=== PATIENT | male | born 1965 | race Two or more races ===

== ENCOUNTER 2018-11-22 20:11 | Inpatient (IN) | payer OTHER ==
[~2018-11-22] VITALS: Ht 180.3 cm; Wt 89.8 kg
--- NOTE | 2018-11-22 20:57 | NUR ---
BIBPA .C/O "SURGERY L L E X30 DAYS AGO FOR FX. LOOKS LIKE NECTORIC TISSUE " -FEVER. -TACHYCARDIA. VSS. AOX4. NAMIBIAN SPEAKING. PT AAOX3, VSS. RR EVEN & UNLABORED. DENIES CP, SOB, DIZZINESS, N/V @ THIS TIME. PT SEEN & EVAL'D BY SAMY TEE. WILL CONT TO MONITOR. FAMILY MEMBER @ BS ASSISTING W/ TRANSLATION & WILL CONT TO MONITOR.
[2018-11-22 21:00] LABS: BASOPHILS # (AUTO) 0.1 /CMM (0.0-0.2); BASOPHILS % (AUTO) 1.3 % (0.0-2.0); EOSINOPHILS % (AUTO) 3.9 % (0.0-6.0); HEMATOCRIT 36 % (39-51); HEMOGLOBIN 11.7 g/dL (13.5-17.5); LYMPHOCYTES # (AUTO) 1.6 /CMM (0.8-4.8); MEAN CORPUSCULAR HGB CONC 32 g/dl (31.0-36.0); MEAN CORPUSCULAR VOLUME 85 fL (80-96); MONOCYTES # (AUTO) 0.7 /CMM (0.1-1.30); MONOCYTES % (AUTO) 9.1 % (2.0-12.0); NEUTROPHILS # (AUTO) 4.7 /CMM (1.8-8.9); NEUTROPHILS % (AUTO) 63.7 % (43.0-81.0); PLATELET COUNT (AUTO) 426 /CMM (150-450); RED BLOOD CELL COUNT(AUTO) 4.28 MIL/uL (4.5-6.0); WHITE BLOOD COUNT (AUTO) 7.3 K/uL (4.3-11.0)
[2018-11-22 21:31] LABS: ALBUMIN 2.8 g/dL (3.4-5.0); BILIRUBIN,DIRECT 0.1 mg/dL (0.0-0.2); BILIRUBIN,TOTAL 0.2 mg/dL (0.2-1.0); CALCIUM, SERUM 9.1 mg/dL (8.5-10.1); CREATININE 0.7 mg/dL (0.6-1.3); TOTAL PROTEIN, SERUM 7.7 g/dL (6.4-8.2)
[2018-11-22] MEDS ORDERED: CT SWABBABLE VALVE TRANS SET 1 EA INFUS.SET MC ONE (21:32)
[2018-11-22] MEDS ORDERED: IV NS 0.9% 250 ML IV ONE (21:32)
[2018-11-22] MEDS ORDERED: IOHEXOL-300 100 ML VIAL IV ONE (21:32)
[2018-11-22] MEDS ORDERED: VANCOMYCIN 1 GM in IV NS 0.9% 250 ML IV STA (21:55)
[2018-11-22] MEDS ORDERED: MORPHINE SULFATE INJ 2 MG/ML DISP.SYRIN IV ONE (22:00)
[2018-11-22] MEDS ORDERED: IV NS 0.9% 1,000 ML BAG IV ONE (22:00)
[2018-11-22] MEDS ORDERED: ONDANSETRON HCL/PF 4 MG/2 ML VIAL IVP ONE (22:00)
[2018-11-22] MEDS ORDERED: MORPHINE SULFATE INJ 4 MG/ML DISP.SYRIN ONE (22:17)
[2018-11-22] MEDS ORDERED: VANCOMYCIN 1 GM VIAL ONE (22:17)
[2018-11-22] MEDS ORDERED: ONDANSETRON HCL/PF 4 MG/2 ML VIAL ONE (22:17)
--- NOTE | 2018-11-22 22:25 | NUR ---
DR. CHIANG NOTIFIED, NOT MATRIX INSPECTOR. [facility] CALLED, DUSTY WEBB APPLE SORTER PAGED.
--- NOTE | 2018-11-22 22:36 | NUR ---
MEDICATED ORDERED, PT MESFIN WELL. WILL CONT TO MONITOR.
[2018-11-22] MEDS ORDERED: DEXTROSE 50%-WATER 50 ML DISP.SYRIN IV PRN (23:00)
[2018-11-22] MEDS: BLOOD SUGAR DIAGNOSTIC 1 EACH STRIP IN SCH (23:00)
[2018-11-22] MEDS ORDERED: ACETAMINOPHEN 325 MG TABLET PO PRN (23:00)
[2018-11-22] MEDS ORDERED: MAG HYDROX/AL HYDROX/SIMETH 30 ML UDC PO PRN (23:00)
[2018-11-22] MEDS ORDERED: ZOLPIDEM TARTRATE 5 MG TABLET PO PRN (23:00)
[2018-11-22] MEDS ORDERED: Z GUARD REMEDY 2 OZ OINT TP PRN (23:00)
[2018-11-22] MEDS ORDERED: ONDANSETRON HCL/PF 4 MG/2 ML VIAL IVP PRN (23:00)
--- NOTE | 2018-11-22 23:31 | NUR ---
REPORT GIVEN TO CAPRI TINAJERO FOR VIN.
[2018-11-23 00:30] VITALS: BP 154/94
--- NOTE | 2018-11-23 00:30 | NUR ---
RN ADMITTING NOTES RECEIVED PT FROM ER VIA KRISTAL, AWAKE ALERT ORIENTED X4, BREATHING EVEN AND UNLABORED ON ROOM AIR. IV ACCESS ON THE R AC 20G. NO COMPLAINT OF PAIN OR DISCOMFORT AT THIS TIME. L LOWER LEG WOUND, WRAPPED AND KERLIX, DRESSING CHANGED AND WOUND PICTURED. BELONGINGS SIGNED FOR. BED IN LOWEST LOCKED POSITION, CALL LIGHT WITHIN REACH AT ALL TIMES, WILL CONTINUE TO MONITOR FREQUENTLY/
[2018-11-23] MEDS: ENOXAPARIN SODIUM 40 MG/0.4 ML DISP.SYRIN SQ SCH ×2 (00:40→22:09)
--- NOTE | 2018-11-23 00:40 | NUR ---
BG 136- PT REFUSED INSULIN
[2018-11-23] MEDS: IV NS 0.9% 1,000 ML IV PRN ×2 (00:46→16:40)
[2018-11-23] MEDS: HYDROCODONE/APAP 5/325MG 1 EACH TABLET PO PRN ×2 (02:20→18:57)
[2018-11-23] MEDS ORDERED: HYDR-4384 PO (03:00)
[2018-11-23] MEDS ORDERED: INSU100V7 SQ (03:00)
[2018-11-23] MEDS ORDERED: ENOX40DI SQ (03:03)
[2018-11-23] MEDS ORDERED: DOCU-159 PO (03:03)
[2018-11-23] MEDS ORDERED: INSU100V39 SQ (03:03)
[2018-11-23 04:16] VITALS: BP 154/94
[2018-11-23 06:26] LABS: BASOPHILS % (AUTO) 0.7 % (0.0-2.0); EOSINOPHILS % (AUTO) 6.4 % (0.0-6.0); HEMATOCRIT 35 % (39-51); LYMPHOCYTES # (AUTO) 1.3 /CMM (0.8-4.8); LYMPHOCYTES % (AUTO) 23.3 % (20.0-44.0); MEAN CORPUSCULAR HGB CONC 32 g/dl (31.0-36.0); MEAN CORPUSCULAR VOLUME 85 fL (80-96); MONOCYTES # (AUTO) 0.5 /CMM (0.1-1.30); MONOCYTES % (AUTO) 9.5 % (2.0-12.0); NEUTROPHILS # (AUTO) 3.4 /CMM (1.8-8.9); NEUTROPHILS % (AUTO) 60.1 % (43.0-81.0); PLATELET COUNT (AUTO) 358 /CMM (150-450); RED BLOOD CELL COUNT(AUTO) 4.06 MIL/uL (4.5-6.0); WHITE BLOOD COUNT (AUTO) 5.7 K/uL (4.3-11.0)
--- NOTE | 2018-11-23 06:33 | NUR ---
RN MS CLOSING NOTES PT REMAINS IN BED SLEEPING INTERMITTENTLY , BREATHING EVEN AND UNLABORED ON ROOM AIR. IV ACCESS ON THE R AC 20G WITH NS @ 75ML/HR. NO COMPLAINT OF PAIN OR DISCOMFORT AT THIS TIME. L LOWER LEG WOUND, WRAPPED AND KERLIX, DRESSING CLEAN AND INTACT. BED IN LOWEST LOCKED POSITION, CALL LIGHT WITHIN REACH AT ALL TIMES, WILL ENDORSE TO DAY NURSE FOR VIN
[2018-11-23] MEDS: BLOOD SUGAR DIAGNOSTIC 1 EACH STRIP IN SCH ×4 (06:34→22:10)
[2018-11-23 07:00] VITALS: BP 150/90
[2018-11-23 07:01] LABS: CALCIUM, SERUM 8.5 mg/dL (8.5-10.1); CREATININE 0.7 mg/dL (0.6-1.3); MAGNESIUM 1.8 mg/dL (1.8-2.4); PHOSPHORUS 4.1 mg/dL (2.5-4.9); POTASSIUM 4.1 mmol/L (3.5-5.1)
--- NOTE | 2018-11-23 07:39 | NUR ---
MS RN OPENING NOTES RECEIVED PT LAYING IN BED, RESTING COMFORTABLY. PT IS A/O X4, AFEBRILE. RESPIRATIONS ARE EVEN AND UNLABORED, NOT IN ANY ACUTE DISTRESS NOTED. DENIES ANY PAIN AT THIS TIME, NO SOB, N/V. IV SITE TO RAC G20 INTACT, NO INFILTRATION NOTED. DRESSING KEPT CLEAN AND DRY. SAFETY MEASURES ARE IN PLACE. INSTRUCTED PT TO USE CALL LIGHT WHEN ASSISTANCE IS NEEDED, CALL LIGHT IS LEFT WITHIN REACH. WILL MONITOR THROUGHOUT SHIFT FOR CONTINUITY OF CARE.
[2018-11-23 08:00] VITALS: BP 150/90
[2018-11-23] MEDS: LISINOPRIL (10MG) 10 MG TABLET PO SCH (08:14)
[2018-11-23] MEDS: ASPIRIN 81 MG TAB.CHEW PO SCH (08:14)
[2018-11-23] MEDS ORDERED: FEE PK DOSING 1 MIN EA MC ONE (08:15)
--- NOTE | 2018-11-23 09:47 | NUR ---
WOUND CARE CONSULT: PT PRESENTS WITH LEFT LOWER LEG DRESSING WHICH PT REFUSED TO HAVE REMOVED AT THIS TIME. LACHELLE NOTED TO LEFT UPPER LEG, PRESENT ON ADMISSION. DEFER TO MD FOR SURGICAL CONSULT. PT IS CONTINENT AND INDEPENDENT WITH BED MOBILITY. Addendum: 11/23/18 at 0952 by GEOFFREY VITALE WNDNU SPOKE WITH ECOLOGIST TECHNICIAN REGARDING POSSIBLE SURGICAL CONSULT AND DPM CONSULT REQUESTED WELL SURGICAL CONSULT. DR KENNEDY MUHAMMAD NOTIFIED OF SURGICAL CONSULT REQUEST AND DR THORPE NOTIFIED OF DPM CONSULT REQUEST.
[2018-11-23] MEDS: VANCOMYCIN 1.25 GM in IV D5W 250 ML IV SCH ×2 (10:14→20:55)
[2018-11-23] MEDS: INSULIN REGULAR, HUMAN 100 UNIT/ML 3 ML VIAL SQ PRN ×3 (12:00→21:18)
--- NOTE | 2018-11-23 13:40 | NUR ---
MS RN NOTES-- PT ABLE TO MAKE NEEDS KNOWN, NEEDS MET AND ANTICIPATED. PT DOES NOT APPEAR TO BE IN ANY APPARENT DISTRESS. REMINDED PT TO USE CALL LIGHT WHEN ASSISTANCE IS NEEDED, CALL LIGHT IS LEFT WITHIN REACH. WILL CONTINUE TO MONITOR THROUGHOUT SHIFT FOR CONTINUITY OF CARE.
--- NOTE | 2018-11-23 15:06 | NUR ---
MS RN NOTES-- PT WAS SEEN AND EXAMINED BY DR. ALEXANDRE, DRESSING CHANGE DONE.
[2018-11-23 16:00] VITALS: BP 150/92
--- NOTE | 2018-11-23 18:20 | NUR ---
MS RN NOTES-- ARTERIAL DUPLEX BEING DONE AT BEDSIDE.
--- NOTE | 2018-11-23 18:39 | NUR ---
MS RN CLOSING NOTES ALL DUE MEDS GIVEN, NEEDS MET AND RENDERED. PT IS A/O X4, AFEBRILE. RESPIRATIONS ARE EVEN AND UNLABORED, NOT IN ANY ACUTE DISTRESS NOTED. PT DENIES ANY PAIN AT THIS TIME, NO C/O SOB, N/V. IV SITE TO LAC INTACT, NO INFILTRATION NOTED. DRESSING KEPT CLEAN AND DRY. SAFETY MEASURES ARE IN PLACE. REMINDED PT TO USE CALL LIGHT WHEN ASSISTANCE IS NEEDED, CALL LIGHT IS LEFT WITHIN REACH. WILL ENDORSE TO NEXT SHIFT FOR CONTINUITY OF CARE.
--- NOTE | 2018-11-23 19:30 | NUR ---
MS SUPERVISOR ASSEMBLY ROOM INITIAL NOTES PT AWAKE AND ALERT WITH HIS FAMILY AT THE BEDSIDE. STILL WITH IVF INFUSING . DENIES ANY PAIN OR ANY DISCOMFORT BUT I TOLD HIM IF HE NEEDS PAIN MEDICATION HE CAN CALL ME OR NEEDS SOME HELPED. SPOKE TO ONE OF HIS FAMILY MEMBER REGARDING DR VERAS AND DR AMELIE MUHAMMAD BECAUSE THAT'S WHY THEY'RE STAYING FOR A WHILE. I TOLD THEM WE CAN'T PROMISE IF THEY WILL COME TONIGHT IF IS NOT POSSIBLE REFUGIO. BUT IF THE MD COMES WE WILL LET THEM KNOW WHAT IS THE PLAN PER PT APPROVAL. FAMILY UNDERSTOOD AND SAYING THANK YOU. KEPT HIM COMFORTABLE AT ALL TIMES. WILL CONTINUE MONITORING. PLACE CALL LIGHT AT REACH.
[2018-11-23 20:00] VITALS: BP 118/81
--- NOTE | 2018-11-23 20:15 | NUR ---
MSLVN CLOSING NOTES ENDORSE TO ANOTHER NURSE WILIAM/RN FOR CONTINUITY OF CARE.
[2018-11-23] MEDS: ATORVASTATIN 10 MG TABLET PO SCH (22:05)
[2018-11-24] MEDS: HYDROCODONE/APAP 5/325MG 1 EACH TABLET PO PRN ×3 (06:39→22:29)
[2018-11-24 06:56] LABS: CREATININE 0.7 mg/dL (0.6-1.3); POTASSIUM 3.8 mmol/L (3.5-5.1)
[2018-11-24] MEDS: BLOOD SUGAR DIAGNOSTIC 1 EACH STRIP IN SCH ×4 (07:39→20:33)
[2018-11-24] MEDS: INSULIN REGULAR, HUMAN 100 UNIT/ML 3 ML VIAL SQ PRN ×3 (07:43→20:35)
[2018-11-24 08:00] VITALS: BP 157/94
--- NOTE | 2018-11-24 08:25 | NUR ---
MS RN NOTES-- CALLED [facility] RE: VANCO TROUGH OF 14. PER [facility], TO CONTINUE VANCO 1.25GM.
[2018-11-24] MEDS: VANCOMYCIN 1.25 GM in IV D5W 250 ML IV SCH ×2 (08:28→20:21)
[2018-11-24] MEDS: LISINOPRIL (10MG) 10 MG TABLET PO SCH (08:28)
[2018-11-24] MEDS: ASPIRIN 81 MG TAB.CHEW PO SCH (08:28)
[2018-11-24] MEDS: IV NS 0.9% 1,000 ML IV PRN (11:30)
--- NOTE | 2018-11-24 13:37 | NUR ---
MS RN NOTES-- PT ABLE TO MAKE NEEDS KNOWN. NEEDS MET AND RENDERED. PT DOES NOT APPEAR TO BE IN ANY APPARENT DISTRESS. WILL CONTINUE TO MONITOR.
--- NOTE | 2018-11-24 15:15 | NUR ---
MS RN NOTES-- PT WAS SEEN AND EXAMINED BY DR. MUHAMMAD.
[2018-11-24 16:00] VITALS: BP 143/91
--- NOTE | 2018-11-24 16:19 | NUR ---
MS RN NOTES-- DRESSING CHANGE DONE TO LLE. PT TOLERATED WELL. WILL CONTINUE TO MONITOR.
--- NOTE | 2018-11-24 18:28 | NUR ---
MS RN CLOSING NOTES ALL DUE MEDS GIVEN, NEEDS MET AND RENDERED. PT IS A/O X4, AFEBRILE. RESPIRATIONS ARE EVEN AND UNLABORED, NOT IN ANY ACUTE DISTRESS NOTED. PT DENIES ANY PAIN AT THIS TIME, NO C/O SOB, N/V. IV SITE TO RFA INTACT, NO INFILTRATION NOTED. DRESSING KEPT CLEAN AND DRY. SAFETY MEASURES ARE IN PLACE. REMINDED PT TO USE CALL LIGHT WHEN ASSISTANCE IS NEEDED, CALL LIGHT IS LEFT WITHIN REACH. WILL ENDORSE TO NEXT SHIFT FOR CONTINUITY OF CARE.
[2018-11-24 20:00] VITALS: BP 152/80
[2018-11-24] MEDS: ATORVASTATIN 10 MG TABLET PO SCH (21:11)
[2018-11-24] MEDS: ENOXAPARIN SODIUM 40 MG/0.4 ML DISP.SYRIN SQ SCH (21:12)
[2018-11-25] VITALS (8 sets, daily range): BP systolic 111–140; BP diastolic 69–91
[2018-11-25] MEDS: HYDROCODONE/APAP 5/325MG 1 EACH TABLET PO PRN ×2 (01:38→22:02)
[2018-11-25] MEDS: BLOOD SUGAR DIAGNOSTIC 1 EACH STRIP IN SCH ×4 (06:38→22:50)
[2018-11-25 06:41] LABS: BASOPHILS % (AUTO) 0.5 % (0.0-2.0); EOSINOPHILS % (AUTO) 4.2 % (0.0-6.0); HEMATOCRIT 33 % (39-51); HEMOGLOBIN 10.7 g/dL (13.5-17.5); LYMPHOCYTES # (AUTO) 1.4 /CMM (0.8-4.8); MEAN CORPUSCULAR HGB CONC 33 g/dl (31.0-36.0); MEAN CORPUSCULAR VOLUME 84 fL (80-96); MONOCYTES # (AUTO) 0.6 /CMM (0.1-1.30); NEUTROPHILS # (AUTO) 3.5 /CMM (1.8-8.9); NEUTROPHILS % (AUTO) 60.3 % (43.0-81.0); PLATELET COUNT (AUTO) 315 /CMM (150-450); RED BLOOD CELL COUNT(AUTO) 3.94 MIL/uL (4.5-6.0); WHITE BLOOD COUNT (AUTO) 5.9 K/uL (4.3-11.0)
[2018-11-25 06:42] LABS: CALCIUM, SERUM 8.2 mg/dL (8.5-10.1); CREATININE 0.6 mg/dL (0.6-1.3); MAGNESIUM 1.7 mg/dL (1.8-2.4); PHOSPHORUS 3.9 mg/dL (2.5-4.9); POTASSIUM 3.6 mmol/L (3.5-5.1)
--- NOTE | 2018-11-25 08:00 | NUR ---
MS RN NOTES PATIENT IN BED RESTING. ALERT, ORIENTED X3. NO SOB OR ACUTE DISTRESS NOTED. PERIPHERAL IV INTACT PATENT. BED IN LOW LOCKED POSITION. PATIENT NPO AWAITING FOR LEFT LEG DEBRIDEMENT. BED IN LOW LOCKED POSITION. CALL LIGHT WITHIN REACH. WILL CONTINUE TO MONITOR.
[2018-11-25] MEDS: LISINOPRIL (10MG) 10 MG TABLET PO SCH (09:39)
[2018-11-25] MEDS: ASPIRIN 81 MG TAB.CHEW PO SCH (09:40)
[2018-11-25] MEDS: VANCOMYCIN 1.25 GM in IV D5W 250 ML IV SCH ×2 (09:40→21:50)
[2018-11-25] MEDS: Magnesium 1GM/D5W 100ML PREMIX 100 ML IV SCH ×2 (11:38→16:50)
[2018-11-25] MEDS: INSULIN REGULAR, HUMAN 100 UNIT/ML 3 ML VIAL SQ PRN ×3 (12:25→22:51)
--- NOTE | 2018-11-25 13:30 | NUR ---
MS RN NOTES PATIENT TRANSFERRED TO OR FOR SCHEDULED DEBRIDEMENT OF THE LEFT LEG WOUND.
[2018-11-25] MEDS ORDERED: BACITRACIN 50000 UNITS/VIAL ONE (13:45)
[2018-11-25] MEDS ORDERED: LIDOCAINE HCL/MPF 1% 30 ML VIAL IJ ONE (13:45)
[2018-11-25] MEDS ORDERED: HYDROMORPHONE 1 MG/1 ML DISP.SYRIN ONE (15:45)
[2018-11-25] MEDS ORDERED: METOCLOPRAMIDE HCL 10 MG/2 ML VIAL ONE (15:48)
--- NOTE | 2018-11-25 16:45 | NUR ---
MS RN NOTES PATIENT RETURNED FROM OR VS WNL WILL CONTINUE TO MONITOR.
--- NOTE | 2018-11-25 18:36 | NUR ---
MS RN NOTES PATIENT IN BED RESTING NO SOB OR ACUTE DISTRESS NOTED. PATIENT ALERT, ORIENTED X3. ALL DUE MEDICATIONS ADMINISTERED. ALL NEEDS MET. PATIENTS SOB IMPROVED. PATIENT NOTED WITH SOME SOB. PERIPHERAL IV INTACT PATENT. BED IN LOW LOCKED POSITION, CALL LIGHT WITHIN REACH. WILL ENDORSE VIN TO PM SHIFT. Addendum: 11/25/18 at 1839 by DIANNE HI RN ERROR CHARTED NOTES ON DIFFERENT PATIENT.
--- NOTE | 2018-11-25 18:40 | NUR ---
MS RN NOTES. PATIENT IN BED RESTING FAMILY AT BEDSIDE. NO SOB OR ACUTE DISTRESS NOTED. ALL DUE MEDICATIONS ADMINISTERED. ALL NEEDS MET. PATIENT RECOVERING FROM SURGERY WITH WOUND VAC. INTACT AT -125. NO ACUTE CHANGES NOTED. BED IN LOW LOCKED POSITION. CALL LIGHT WITHIN REACH. WILL ENDORSE CARE TO PM SHIFT.
--- NOTE | 2018-11-25 19:05 | NUR ---
MS RN NOTES RECEIVED PT IN BED AWAKE AND ABLE TO MAKE NEEDS KNOWN WITH FAMILY AT BEDSIDE. PT A/ O X3. RESPIRATIONS EVEN AND UNLABORED WITH NO S/S OF ACUTE DISTRESS OR SOB NOTED. PT WITH RFA#20G PATENT AND INTACT INFUSING NS@75ML/HR. SAFETY MEASURES IN PLACE WITH BED IN LOWEST LOCKED POSITION WITH SIDE RAILS UP X2. CALL LIGHT WITHIN REACH. WILL CONTINUE TO MONITOR.
--- NOTE | 2018-11-25 20:00 | NUR ---
MS RN NOTES SNACKS GIVEN TO PT. WILL CONTINUE TO MONITOR.
[2018-11-25] MEDS: ENOXAPARIN SODIUM 40 MG/0.4 ML DISP.SYRIN SQ SCH (22:00)
[2018-11-25] MEDS: ATORVASTATIN 10 MG TABLET PO SCH (22:00)
--- NOTE | 2018-11-25 22:02 | NUR ---
MS RN NOTES NORCO GIVEN TO PT FOR LLE PAIN. WILL CONTINUE TO MONITOR.
[2018-11-26] MEDS: HYDROCODONE/APAP 5/325MG 1 EACH TABLET PO PRN ×3 (06:38→20:52)
[2018-11-26 06:44] LABS: CALCIUM, SERUM 8.3 mg/dL (8.5-10.1); CREATININE 0.7 mg/dL (0.6-1.3); MAGNESIUM 1.9 mg/dL (1.8-2.4); POTASSIUM 3.8 mmol/L (3.5-5.1)
[2018-11-26 06:45] LABS: BASOPHILS % (AUTO) 0.4 % (0.0-2.0); EOSINOPHILS % (AUTO) 0.7 % (0.0-6.0); HEMATOCRIT 33 % (39-51); HEMOGLOBIN 10.7 g/dL (13.5-17.5); LYMPHOCYTES # (AUTO) 1.2 /CMM (0.8-4.8); LYMPHOCYTES % (AUTO) 16.3 % (20.0-44.0); MEAN CORPUSCULAR HGB CONC 33 g/dl (31.0-36.0); MEAN CORPUSCULAR VOLUME 84 fL (80-96); MONOCYTES # (AUTO) 0.8 /CMM (0.1-1.30); MONOCYTES % (AUTO) 10.1 % (2.0-12.0); NEUTROPHILS # (AUTO) 5.5 /CMM (1.8-8.9); NEUTROPHILS % (AUTO) 72.5 % (43.0-81.0); PLATELET COUNT (AUTO) 360 /CMM (150-450); WHITE BLOOD COUNT (AUTO) 7.6 K/uL (4.3-11.0)
--- NOTE | 2018-11-26 07:30 | NUR ---
RN OPENING NOTE PT WAS RECEIVED IN BED AT LOWEST AND LOCKED POSITION WITH SIDE RAILS UP X2, A/O X3 BREATHING EVEN AND UNLABORED ON RA WITH NO S/S OF ANY DISTRESS OR COMPLAINTS OF PAIN AT THIS TIME, IV IS PATENT AND INTACT, NOTED TO HAVE WOUND ON LLE, PER NIGHT FOOD CASHIER VAC WILL BE CHANGED BY CHANGED BY SURGEON ON WEDNESDAY, SAFETY PRECAUTIONS IN PLACE, CALL LIGHT IN REACH, WILL MONITOR ACCORDINGLY
[2018-11-26] MEDS: BLOOD SUGAR DIAGNOSTIC 1 EACH STRIP IN SCH ×4 (07:31→21:28)
--- NOTE | 2018-11-26 07:34 | NUR ---
MS RN NOTES PT IN BED AWAKE AND ABLE TO MAKE NEEDS KNOWN. PT A/ O X3. RESPIRATIONS EVEN AND UNLABORED WITH NO S/S OF ACUTE DISTRESS OR SOB NOTED THROUGHOUT SHIFT. PT WITH LFA#20G PATENT AND INTACT INFUSING NS@75ML/HR. PT KEPT CLEAN, DRY, AND COMFORTABLE. SAFETY MEASURES IN PLACE WITH BED IN LOWEST LOCKED POSITION WITH SIDE RAILS UP X2. CALL LIGHT WITHIN REACH. WILL ENDORSE TO ONCOMING NURSE FOR VIN.
[2018-11-26 08:00] VITALS: BP 135/73
[2018-11-26] MEDS: ASPIRIN 81 MG TAB.CHEW PO SCH (08:10)
[2018-11-26] MEDS: LISINOPRIL (10MG) 10 MG TABLET PO SCH (08:10)
[2018-11-26] MEDS: VANCOMYCIN 1.25 GM in IV D5W 250 ML IV SCH (08:11)
[2018-11-26] MEDS: IV NS 0.9% 1,000 ML IV PRN ×2 (08:18→23:37)
[2018-11-26] MEDS: INSULIN REGULAR, HUMAN 100 UNIT/ML 3 ML VIAL SQ PRN ×3 (11:55→21:30)
[2018-11-26] MEDS: CEFTRIAXONE 2 G in IV D5W 100 ML IV SCH (14:12)
--- NOTE | 2018-11-26 14:53 | NUR ---
RN NOTE PT WANTED BLOOD SUGAR TO BE TAKEN DUE TO COMPLAINTS OF CHILLS AND DIZZINESS, BLOOD SUGAR WAS NOTED TO BE 162 AT THIS TIME. VITAL SIGNS TAKEN WELL WITH BP NOTED TO BE 143/75, PULSE 74, O2 96%, AND RR OF 18. WILL CONTINUE TO MONITOR ACCORDINGLY
[2018-11-26 16:00] VITALS: BP 137/86
--- NOTE | 2018-11-26 18:28 | NUR ---
RN CLOSING NOTE PT IN BED AT LOWEST AND LOCKED POSITION WITH SIDE RAILS UP X2, A/O X3 BREATHING EVEN AND UNLABORED WITH NO DISTRESS OR COMPLAINTS AT THIS TIME, IV IS PATENT AND INTACT, SAFETY PRECAUTIONS IN PLACE, CALL LIGHT IN REACH, ALL NEEDS ATTENDED TO, WILL ENDORSE TO NIGHT RN FOR VIN.
--- NOTE | 2018-11-26 19:10 | NUR ---
MS RN NOTE RECEIVED PT IN STABLE CONDITION A/O X3, FAMILY NOTED TO BE AT BEDSIDE TALKING WITH PT. NO SIGNS OF SOB OR DISTRESS, NO C/O PAIN OR N/V. IV IN L FA #[address] WITH IVF INFUSING. LLE WOUND VAC IN PLACE WITH DARK RED DRAINAGE NOTED. ALL CURRENT NEEDS ATTENDED TO. BED LOW, LOCKED, UPPER RAILS UP, AND CALL LIGHT WITHIN REACH. WILL CONT. TO MONITOR.
[2018-11-26 20:00] VITALS: BP 126/72
[2018-11-26] MEDS: ATORVASTATIN 10 MG TABLET PO SCH (21:14)
[2018-11-26] MEDS: ENOXAPARIN SODIUM 40 MG/0.4 ML DISP.SYRIN SQ SCH (21:14)
[2018-11-27] MEDS: HYDROCODONE/APAP 5/325MG 1 EACH TABLET PO PRN ×3 (05:15→21:30)
--- NOTE | 2018-11-27 06:17 | NUR ---
MS RN NOTE PT REMAINS IN STABLE CONDITION A/O X3, CURRENTLY RESTING IN BED, EASILY AROUSABLE. NO SIGNS OF SOB OR DISTRESS, NO C/O PAIN OR N/V. IV IN L FA #[address] WITH IVF INFUSING. LLE WOUND VAC IN PLACE WITH DARK RED DRAINAGE NOTED. ALL CURRENT NEEDS ATTENDED TO. BED LOW, LOCKED, UPPER RAILS UP, AND CALL LIGHT WITHIN REACH. WILL CONT. TO MONITOR AND ENDORSE TO NEXT SHIFT FOR VIN.
[2018-11-27] MEDS: BLOOD SUGAR DIAGNOSTIC 1 EACH STRIP IN SCH ×4 (06:32→21:10)
[2018-11-27 07:12] LABS: BASOPHILS % (AUTO) 0.5 % (0.0-2.0); EOSINOPHILS % (AUTO) 2.6 % (0.0-6.0); HEMATOCRIT 31 % (39-51); HEMOGLOBIN 9.9 g/dL (13.5-17.5); LYMPHOCYTES # (AUTO) 1.3 /CMM (0.8-4.8); LYMPHOCYTES % (AUTO) 19.6 % (20.0-44.0); MEAN CORPUSCULAR HGB CONC 33 g/dl (31.0-36.0); MEAN CORPUSCULAR VOLUME 84 fL (80-96); MONOCYTES # (AUTO) 0.7 /CMM (0.1-1.30); MONOCYTES % (AUTO) 10.8 % (2.0-12.0); NEUTROPHILS # (AUTO) 4.4 /CMM (1.8-8.9); NEUTROPHILS % (AUTO) 66.5 % (43.0-81.0); PLATELET COUNT (AUTO) 283 /CMM (150-450); RED BLOOD CELL COUNT(AUTO) 3.65 MIL/uL (4.5-6.0); WHITE BLOOD COUNT (AUTO) 6.7 K/uL (4.3-11.0)
[2018-11-27 07:23] LABS: CREATININE 0.7 mg/dL (0.6-1.3); POTASSIUM 3.7 mmol/L (3.5-5.1)
[2018-11-27 07:43] VITALS: BP 145/83
[2018-11-27 08:00] VITALS: BP 145/83
--- NOTE | 2018-11-27 08:00 | NUR ---
rn notes received patient in the bed a/o x3, stable, no acute respiratory distress. v/s stable administered scheduled medication, infusing ns at 75 ml/hr on left fa intact. patient has a wound vac on left leg wrapped with, pressure bandage, first dressing change on Wednesday by MD. keep left leg elevated patient turn and reposition self in the bed, needs attained and anticipated, call light within to reach, continued monitoring.
[2018-11-27] MEDS: ASPIRIN 81 MG TAB.CHEW PO SCH (08:55)
[2018-11-27] MEDS: LISINOPRIL (10MG) 10 MG TABLET PO SCH (08:56)
[2018-11-27] MEDS: LACTOBACILLUS RHAMNOSUS GG 1 EACH CAP.SPRINK PO SCH ×2 (08:58→17:29)
[2018-11-27] MEDS ORDERED: CEFT2FRO2 IV (11:18)
[2018-11-27] MEDS: INSULIN REGULAR, HUMAN 100 UNIT/ML 3 ML VIAL SQ PRN ×3 (12:49→21:25)
[2018-11-27] MEDS: IV NS 0.9% 1,000 ML IV PRN (13:36)
--- NOTE | 2018-11-27 13:36 | NUR ---
rn notes BS-179 mg/dl coverage given, also administered narco 5/325 mg po prn. v/s taken bp 128/68, p78, encouraged to increase fluid intake. patient tolerated food well. next to the bed. call light within to reach. continued monitoring.
[2018-11-27] MEDS: CEFTRIAXONE 2 G in IV D5W 100 ML IV SCH (14:56)
[2018-11-27 16:00] VITALS: BP 120/73
--- NOTE | 2018-11-27 18:30 | NUR ---
RN NOTES BS-174 MG/DL COVERAGE GIVEN, V/S STABLE, WOUND VAC DRAINAGE 80 ML, MARKED ON COLLECTION CHAMBER, ADMINISTERED SCHEDULED MEDICATION, INFUSING NS AT 75 ML/HR INTACT. PATIENT REFUSED PAIN AT THIS TIME, NEXT TO THE BED, PATIENT TURN AND REPOSTION SELF IN THE BED. CALL LIGHT WITHIN TO REACH. ENDORSED ONCOMING NURSE FOLLOW PLAN OF CARE.
--- NOTE | 2018-11-27 19:36 | NUR ---
MS/RN OPENING NOTES RECEIVED PATIENT IN BED, AWAKE, ALERT X3, ABLE TO VERBALIZE NEEDS, SPEAKS MACEDONIAN BUT ABLE TO UNDERSTAND [place]UG[place], ON WOUND VAC FOR LEFT LEG .
[2018-11-27 19:53] VITALS: BP 135/76
[2018-11-27 20:06] VITALS: BP 135/76
[2018-11-27] MEDS: ATORVASTATIN 10 MG TABLET PO SCH (21:10)
[2018-11-27] MEDS: ENOXAPARIN SODIUM 40 MG/0.4 ML DISP.SYRIN SQ SCH (21:16)
--- NOTE | 2018-11-27 22:48 | NUR ---
ms/rn notes patietn left forearm infiltrated, noted redness, removed iv , patietn requested to have it reinserted ken am as patietn uncomfortable and tolerating fluids by mouth. discussed importance and verbalized understanding.
[2018-11-28] MEDS: BLOOD SUGAR DIAGNOSTIC 1 EACH STRIP IN SCH ×4 (06:20→21:31)
[2018-11-28] MEDS: HYDROCODONE/APAP 5/325MG 1 EACH TABLET PO PRN ×3 (06:27→19:18)
--- NOTE | 2018-11-28 06:28 | NUR ---
MS/RN NOTES PATIENT ABLE TO SLEEP DURING THE NIGHT, REPORTED PAIN IN THE MORNING AND NORCO 5-325 MG PO GIVEN, BLOOD SUGAR CHECK AT 148. TO HAVE BREAKFAST , REQUESTING FOR IV REINSERTION BE DONE AFTER BREAKFAST AND TO HAVE BLOOD SUGAR CHECK PRIOR TO BREAKFAST, WILL MONITOR.
[2018-11-28 06:38] LABS: CALCIUM, SERUM 8.2 mg/dL (8.5-10.1); CREATININE 0.6 mg/dL (0.6-1.3); POTASSIUM 3.6 mmol/L (3.5-5.1)
[2018-11-28 07:30] VITALS: BP 135/88
[2018-11-28] MEDS: ASPIRIN 81 MG TAB.CHEW PO SCH (08:45)
[2018-11-28] MEDS: LISINOPRIL (10MG) 10 MG TABLET PO SCH (08:45)
[2018-11-28] MEDS: LACTOBACILLUS RHAMNOSUS GG 1 EACH CAP.SPRINK PO SCH ×2 (08:45→17:40)
[2018-11-28] MEDS: INSULIN REGULAR, HUMAN 100 UNIT/ML 3 ML VIAL SQ PRN ×3 (14:17→21:26)
[2018-11-28] MEDS: CEFTRIAXONE 2 G in IV D5W 100 ML IV SCH (15:34)
[2018-11-28] MEDS: PROSOURCE / PROSTAT (PYXIS) 30 ML UDC GT SCH (17:41)
--- NOTE | 2018-11-28 19:00 | NUR ---
RN CLOSING NOTES PT AWAKE AND RESTING IN BED. AT BEDSIDE. PT PRIMARILY GREEK SPEAKER. PAIN MANAGED WITH PRN NORCO. PT HAS RIGHT FA #20 IV INTACT AND RUNNING NS. WOUND VAC REMOVED TODAY BY DR POST, PER DR SINCERE WOODS FOR PATIENT TO BE WITHOUT WOUND VAC UNTIL TOMORROW WHEN HE WILL BE TRANSFERRED TO SNF. SAFETY PRECAUTIONS IN PLACE, BED IN LOWEST LOCKED POSITION, X2 SIDE RAILS UP AND CALL LIGHT WITHIN REACH. WILL ENDORSE TO SPA SUPERVISOR NURSE FOR CONTINUITY OF CARE.
--- NOTE | 2018-11-28 19:20 | NUR ---
RN PM OPENING NOTES BEDSIDE REPORT RECIEVED FROM FLORA FAROOQ. PT AWAKE AND RESTING IN BED. AT BEDSIDE. POC REVIEWED QUESTIONS CONCERNS ADDRESSED. PT PRIMARILY LUXEMBOURGISH SPEAKER. PAIN MANAGED WITH PRN NORCO AND DOSE ADMINISTERED BY FLORA KITCHENUING REPORT. PT HAS RIGHT FA #20 IV INTACT AND RUNNING NS. WOUND VAC NOT ON REMOVED TODAY BY DR POST, PER DR POST OKAY FOR PATIENT TO BE WITHOUT WOUND VAC UNTIL TOMORROW WHEN HE WILL BE TRANSFERRED TO SNF IF PLANS GET DISRUPTED WOUND CARE NURSE TO REAPPLY WOUND VAC IF NEEDED PER REPORT. SAFETY PRECAUTIONS IN PLACE, BED IN LOWEST LOCKED POSITION, X2 SIDE RAILS UP AND CALL LIGHT WITHIN REACH. WILL CONT TO MONITOR.
[2018-11-28 20:11] VITALS: BP 148/88
[2018-11-28] MEDS: ENOXAPARIN SODIUM 40 MG/0.4 ML DISP.SYRIN SQ SCH (21:25)
[2018-11-28] MEDS: ATORVASTATIN 10 MG TABLET PO SCH (21:27)
[2018-11-28] MEDS: IV NS 0.9% 1,000 ML IV PRN (21:32)
[2018-11-29] MEDS: HYDROCODONE/APAP 5/325MG 1 EACH TABLET PO PRN ×4 (05:21→22:50)
[2018-11-29] MEDS: INSULIN REGULAR, HUMAN 100 UNIT/ML 3 ML VIAL SQ PRN ×4 (06:10→22:04)
[2018-11-29] MEDS: BLOOD SUGAR DIAGNOSTIC 1 EACH STRIP IN SCH ×4 (06:11→22:01)
[2018-11-29 06:43] LABS: CALCIUM, SERUM 8.3 mg/dL (8.5-10.1); CREATININE 0.6 mg/dL (0.6-1.3); POTASSIUM 3.7 mmol/L (3.5-5.1)
--- NOTE | 2018-11-29 06:55 | NUR ---
RN PM CLOSING NOTE PT IN BED WITH EYES CLOSED. PT RIGHT FA #20 IV INTACT AND RUNNING NS AT 75ML/HR. PT TO TRANSFER TO SNF AND HAVE WOUND VAC REAPPLIED TO WOUND TODAY. IF THERE IS ANOTHER DELAY WOUND VAC TO BE PLACED BACK ON AT THIS FACILITY. SAFETY PRECAUTIONS IN PLACE, BED IN LOWEST LOCKED POSITION, X2 SIDE RAILS UP AND CALL LIGHT WITHIN REACH. WILL ENDORSE TO DAY SHIFT NURSE FOR CONTINUITY OF CARE.
[2018-11-29 08:00] VITALS: BP 146/88
--- NOTE | 2018-11-29 08:00 | NUR ---
RN NOTES RECEIVED PATIENT IN THE BED A/O X 3, PATIENT HAVE NO ACUTE RESPIRATORY DISTRESS, V/S STABLE, PATIENT REFUSED PAIN AT THIS TIME. LEFT LEG DRESSING INTACT ELEVATED BY PILLOW. PATIENT TURN AND REPOSTION SELF IN THE BED, RIGHT AC NS AT 75 ML/HR INTACT, CALL LIGHT WITHIN TO REACH. SAFETY PRECAUTION MAINTAINED ALL THE TIME.
[2018-11-29] MEDS: LACTOBACILLUS RHAMNOSUS GG 1 EACH CAP.SPRINK PO SCH ×2 (09:02→16:35)
[2018-11-29] MEDS: ASPIRIN 81 MG TAB.CHEW PO SCH (09:02)
[2018-11-29] MEDS: LISINOPRIL (10MG) 10 MG TABLET PO SCH (09:02)
[2018-11-29] MEDS: PROSOURCE / PROSTAT (PYXIS) 30 ML UDC GT SCH ×3 (09:09→16:29)
--- NOTE | 2018-11-29 09:09 | NUR ---
rn notes administered Senokot 17.2 po prn for constipation.
[2018-11-29] MEDS: SENNOSIDES 8.6 MG TABLET PO PRN ×2 (09:10→22:02)
--- NOTE | 2018-11-29 09:34 | NUR ---
rn notes administered narco 5/325 mg po prn for pain left leg pain scale 7/10 per patient request, v/s taken bp-146/88, p-69 also applying wound vac at this time by wound rn Dolores. continued monitoring.
--- NOTE | 2018-11-29 10:02 | NUR ---
WOUND CARE CONSULT: PT SEEN FOR WOUND VAC PLACEMENT/DRESSING CHANGE TO LEFT LOWER LEG. LARGE ANTERIOR LOWER LEG WOUND MEASURES 25CM X 18CM X 0.5CM AND MOSTLY RED GRANULATION TISSUE WITH SOME YELLOW TISSUE, SMALL AMOUNT OF SEROSANGUINOUS DRAINAGE, VERY MILD ODOR. LEFT POSTERIOR LOWER LEG WOUND IS BROWN NECROTIC TISSUE (MOSTLY DRY) WITH MOIST SLOUGH TO CENTRAL AREA OF WOUND WITH LACHELLE. POSTERIOR WOUND MEASURES 9CM X 8CM X UTD(NECROTIC). SCANT YELLOW DRAINAGE ONLY NOTED FROM CENTER OF POSTERIOR WOUND, NO ODOR. GRANUFOAM WAS APPLIED TO ANTERIOR WOUND AFTER SKIN PREP AND VAC DRAPE APPLIED TO PERIWOUND AREAS. XEROFORM AND ABD PAD WERE APPLIED TO POSTERIOR CALF WOUND, THEN WRAPPED WITH GENTLE KERLIX WRAP AND BURN NET. VAC AT 125mm Hg CONTINUOUS SETTING. PT TOLERATED WELL. LACHELLE NOTED TO LEFT THIGH, KNEE AREA AND SUTURES NOTED TO LEFT ANKLE AREA. ALL WOUNDS, LACHELLE AND SUTURES PRESENT ON ADMISSION. MSG LEFT FOR DPM REGARDING DRESSING CHANGE. WILL FOLLOW. LEG ELEVATED ON PILLOW.
--- NOTE | 2018-11-29 11:01 | NUR ---
RN ICU CLARIFIED WOUND VAC ORDERS WITH DR SNICERE ROSA. WOUND VAC RE-APPLIED DISCHARGE PLANS HAVE CHANGED AT THIS TIME. PATIENT WILL HAVE WOUND VAC IN PLACE UNTIL DISCHARGE. CASE MANAGEMENT CONTINUES TO WORK ON DISCHARGE PLANS FOR PATIENT AT THIS TIME. ALL DISCUSSED WITH NURSING STAFF.
--- NOTE | 2018-11-29 12:30 | NUR ---
RN NOTES BS-194 MG/DL COVERAGE GIVEN, ALSO ADMINISTERED SCHEDULED MEDICATION, MEDICATION WERE ADMINISTERED FOR PAIN EFFECTIVE. CALL LIGHT WITHIN TO REACH. WOUND VAC IS INTACT NO DISCHARGE NOTED AT THIS TIME.
[2018-11-29] MEDS: CEFTRIAXONE 2 G in IV D5W 100 ML IV SCH (15:11)
[2018-11-29 16:00] VITALS: BP 140/90
[2018-11-29] MEDS: IV NS 0.9% 1,000 ML IV PRN (16:29)
--- NOTE | 2018-11-29 16:35 | NUR ---
RN NOTES ADMINISTERED NARCO 5/325 MG PO PRN FOR LEFT LEG PAIN 07/18 PER PATIENT REQUEST, V/S TAKEN BP 140/90, P-78, R-18, BS-203 MG/ DL, ADMINISTERED SCHEDULED MEDICATION. CONTINUED MONITORING.
--- NOTE | 2018-11-29 17:17 | NUR ---
RN NOTES REMOVED 4 LACHELLE ON LEFT LEG BUT PATIENT REFUSED OTHER 2 LACHELLE TO BE REMOVED. PATIENT STATE "VERY PAINFUL PLEASE REMOVE LATER". CONTINUED MONITORING
--- NOTE | 2018-11-29 18:30 | NUR ---
RN NOTES PATIENT EATING DINNER, REFUSED PAIN, ADMINISTERED SCHEDULED MEDICATION, ENCOURAGED TO INCREASE FLUID INTAKE, MEDICATION WERE ADMINISTERED FOR CONSTIPATION NOT EFFECTIVE. WOUND VAC INTACT 20 ML OF DRAINAGE, INFUSING NS AT 75ML/HR ON RIGHT AC AREA. CALL LIGHT WITHIN TO REACH. PATIENT USING URINAL. ENDORSED ONCOMING NURSE FOLLOW PLAN OF CARE. SITTING NEXT TO THE BED,
--- NOTE | 2018-11-29 19:25 | NUR ---
RN OPEN NOTES RECEIVED PATIENT AWAKE IN BED WITH FAMILY AT BEDSIDE. A/O X4. NO SIGNS OF DISTRESS OR DISCOMFORT. BREATHING EVEN AND UNLABORED. IV ACCESS IN RFA WITH NS INFUSING, PATENT AND INTACT, NO SIGNS OF REDNESS OR INFILTRATION. WOUND VAC ON LLE INTACT WITH SETTINGS ORDERED, DRAINING SEROUS FLUID. BED IN LOW LOCKED POSITION WITH SIDE RAILS X2. CALL LIGHT WITHIN REACH. WILL CONTINUE TO MONITOR.
[2018-11-29 20:16] VITALS: BP 139/89
[2018-11-29] MEDS: ATORVASTATIN 10 MG TABLET PO SCH (22:02)
[2018-11-29] MEDS: ENOXAPARIN SODIUM 40 MG/0.4 ML DISP.SYRIN SQ SCH (22:03)
--- NOTE | 2018-11-29 22:50 | NUR ---
RN NOTES ADMINISTERED NORCO 5/325 ORDERED FOR LLE PAIN 09/17, AT PATIENT REQUEST. VSS. WILL CONTINUE TO MONITOR.
[2018-11-30] MEDS: HYDROCODONE/APAP 5/325MG 1 EACH TABLET PO PRN ×2 (05:38→13:43)
--- NOTE | 2018-11-30 05:38 | NUR ---
RN NOTES ADMINISTERED NORCO 5/325 ORDERED FOR LLE PAIN 09/17, AT PATIENT REQUEST. VSS. WILL CONTINUE TO MONITOR.
[2018-11-30] MEDS: INSULIN REGULAR, HUMAN 100 UNIT/ML 3 ML VIAL SQ PRN ×3 (06:29→17:18)
[2018-11-30] MEDS: BLOOD SUGAR DIAGNOSTIC 1 EACH STRIP IN SCH ×3 (06:35→17:14)
[2018-11-30] MEDS: IV NS 0.9% 1,000 ML IV PRN (06:39)
[2018-11-30 06:54] LABS: BASOPHILS % (AUTO) 0.4 % (0.0-2.0); EOSINOPHILS % (AUTO) 6.3 % (0.0-6.0); HEMATOCRIT 33 % (39-51); HEMOGLOBIN 10.7 g/dL (13.5-17.5); LYMPHOCYTES # (AUTO) 1.6 /CMM (0.8-4.8); LYMPHOCYTES % (AUTO) 27.3 % (20.0-44.0); MEAN CORPUSCULAR HGB CONC 33 g/dl (31.0-36.0); MEAN CORPUSCULAR VOLUME 84 fL (80-96); MONOCYTES # (AUTO) 0.6 /CMM (0.1-1.30); MONOCYTES % (AUTO) 10.1 % (2.0-12.0); NEUTROPHILS # (AUTO) 3.2 /CMM (1.8-8.9); NEUTROPHILS % (AUTO) 55.9 % (43.0-81.0); PLATELET COUNT (AUTO) 268 /CMM (150-450); RED BLOOD CELL COUNT(AUTO) 3.92 MIL/uL (4.5-6.0); WHITE BLOOD COUNT (AUTO) 5.8 K/uL (4.3-11.0)
--- NOTE | 2018-11-30 07:02 | NUR ---
RN CLOSING NOTES PATIENT RESTING IN BED, EASILY AROUSABLE. A/O X4. NO SIGNS OF DISTRESS OR DISCOMFORT. BREATHING EVEN AND UNLABORED. IV ACCESS IN RFA WITH NS INFUSING, PATENT AND INTACT, NO SIGNS OF REDNESS OR INFILTRATION. WOUND VAC ON LLE INTACT WITH SETTINGS ORDERED, DRAINING SEROSANGUINEOUS FLUID WITH APPROX 75ML OF OUTPUT THROUGHOUT SHIFT. ALL NEEDS MET. NO SIGNIFICANT CHANGES THROUGH THE NIGHT. DRESSING ON LLE C/D/I. BED IN LOW LOCKED POSITION WITH SIDE RAILS X2. CALL LIGHT WITHIN REACH. WILL ENDORSE TO AM SHIFT FOR VIN.
[2018-11-30 07:25] LABS: CALCIUM, SERUM 8.2 mg/dL (8.5-10.1); CREATININE 0.6 mg/dL (0.6-1.3); MAGNESIUM 1.6 mg/dL (1.8-2.4); PHOSPHORUS 3.6 mg/dL (2.5-4.9); POTASSIUM 3.6 mmol/L (3.5-5.1)
--- NOTE | 2018-11-30 07:43 | NUR ---
MS RN OPENING NOTES RECEIVED PT LAYING IN BED W/ HOB ELEVATED. PT IS A/O X3, AFEBRILE. RESPIRATIONS ARE EVEN AND UNLABORED, NOT IN ANY ACUTE DISTRESS NOTED. DENIES ANY PAIN AT THIS TIME, NO SOB, N/V. IV SITE TO RAC 20G, NO INFILTRATION NOTED. DRESSING KEPT CLEAN AND DRY. SAFETY MEASURES ARE IN PLACE. INSTRUCTED PT TO USE CALL LIGHT WHEN ASSISTANCE IS NEEDED, CALL LIGHT IS LEFT WITHIN REACH. WILL MONITOR THROUGHOUT SHIFT FOR CONTINUITY OF CARE.
[2018-11-30 08:00] VITALS: BP 139/65
[2018-11-30] MEDS: PROSOURCE / PROSTAT (PYXIS) 30 ML UDC GT SCH ×3 (08:20→17:14)
[2018-11-30] MEDS: LISINOPRIL (10MG) 10 MG TABLET PO SCH (08:20)
[2018-11-30] MEDS: ASPIRIN 81 MG TAB.CHEW PO SCH (08:20)
[2018-11-30] MEDS: LACTOBACILLUS RHAMNOSUS GG 1 EACH CAP.SPRINK PO SCH ×2 (08:20→17:14)
--- NOTE | 2018-11-30 09:01 | NUR ---
WOUND CARE: [employer] VAC ON LEFT LOWER LEG WOUND IS FUNCTIONING WELL AT 125mmHg CONTINUOUS SETTING. SMALL AMOUNT OF PINK DRAINAGE IN CANISTER. WILL FOLLOW.
[2018-11-30] MEDS: Magnesium 1GM/D5W 100ML PREMIX 100 ML IV SCH ×2 (09:47→11:01)
--- NOTE | 2018-11-30 09:59 | NUR ---
MS RN NOTES-- PT WAS SEEN AND EXAMINED BY DR. CANDY Reyes/ ORDERS FOR DISCHARGE.
[2018-11-30] MEDS: CEFTRIAXONE 2 G in IV D5W 100 ML IV SCH (14:18)
--- NOTE | 2018-11-30 14:35 | NUR ---
RN NOTES-- PER GILBERT JONES ORDERS TO REMOVE LACHELLE TO UPPER THIGH. LACHELLE REMOVED, PT TOLERATED WELL. NO DRAINAGE NOTED. WILL CONTINUE TO MONITOR.
[2018-11-30 16:00] VITALS: BP 136/76
--- NOTE | 2018-11-30 17:29 | NUR ---
MS RN NOTES-- CALLED [facility], GAVE REPORT TO ANA MARÍA.
--- NOTE | 2018-11-30 18:30 | NUR ---
MS TONAL REGULATOR NOTE PT DISCHARGED TO [facility] IN MEDICALLY STABLE CONDITION [place]IA [place]. PT IS A/O X4, AFEBRILE. RESPIRATIONS ARE EVEN AND UNLABORED, NOT IN ANY ACUTE DISTRESS NOTED. PT DENIES ANY PAIN AT THIS TIME, NO C/O SOB, N/V. PUPILS ARE REACTIVE TO LIGHT, BILATERAL HAND WOUND/OSTOMY NURSE ARE STRONG AND EQUAL. ABDOMEN IS SOFT AND NONDISTENDED, BOWEL SOUNDS ARE PRESENT IN ALL 4 QUADRANTS UPON AUSCULTATION. DENIES ANY BLADDER DISCOMFORT. WOUND VAC TAKEN OFF, WOUND DRESSING DONE PER ORDERS TO LLE. PICTURES TAKEN AND PLACED IN CHART. INFORMED ANA MARÍA FROM [facility] TO APPLY WOUND VAC ONCE PATIENT ARRIVES. IV ACCESS REMOVED, APPLIED PRESSURE AND TOLERATED WELL. EXPLAINED DISCHARGE PAPERWORK TO PT, AT BEDSIDE WITH VERBAL AND WRITTEN UNDERSTAND AND ANA MARÍA AT [facility]. ALL BELONGINGS SENT WITH PT. BEDSIDE ENDORSEMENT GIVEN TO AMBULANCE PERSONNEL. PT LEFT IN MEDICALLY STABLE CONDITION VIA [place].
== END 2018-11-30 18:40 | DRG 857 ==
LOC: ER 20:19 → MED 21:28
PROVIDERS: ADMIT Nurse Practitioner Acute Care; ATTEND Nurse Practitioner Acute Care
PROC: 0QBH0ZZ Excision of Left Tibia, Open Approach (ICD-10-PCS; principal; 2018-11-25)
DX: T81.41XA Infection following a procedure, superficial incisional surgical site, initial encounter (principal); E44.0 Moderate protein-calorie malnutrition; L03.116 Cellulitis of left lower limb; L97.929 Non-pressure chronic ulcer of unspecified part of left lower leg with unspecified severity; Y83.9 Surgical procedure, unspecified as the cause of abnormal reaction of the patient, or of later complication, without mention of misadventure at the time of the procedure; Y92.89 Other specified places as the place of occurrence of the external cause; I10 Essential (primary) hypertension; E78.5 Hyperlipidemia, unspecified; D63.8 Anemia in other chronic diseases classified elsewhere; Z68.27 Body mass index [BMI] 27.0-27.9, adult; E10.622 Type 1 diabetes mellitus with other skin ulcer; E83.42 Hypomagnesemia; B96.89 Other specified bacterial agents as the cause of diseases classified elsewhere; B95.8 Unspecified staphylococcus as the cause of diseases classified elsewhere; B95.2 Enterococcus as the cause of diseases classified elsewhere; Z91.14 Patient's other noncompliance with medication regimen; K59.00 Constipation, unspecified
CPT/HCPCS: 36415; 71045-TC; 73701-TC; 80048-TC; 80061-TC; 80076-TC; 80202-TC; 82550-TC; 82962-TC; 83605-TC; 83735-TC; 84100-TC; 85025-TC; 85730-TC; 86850-TC; 87040-TC; 87070-TC; 87081-TC; 87186-TC; 97110-TC; 97116-TC; 97530-TC; A6209; A6253; A6403; G0378; J0696; J1100; J1170; J1650; J1815; J2001; J2270; J2405; J2704; J2765; J3370; J3475; J3490; J7030; J7050; J7060; Q9967